=== PATIENT | female | born 1945 | race Hispanic/Latino ===

== ENCOUNTER 2017-03-27 09:49 | Outpatient (CLI) | payer MEDICARE, BC | END 2017-03-27 09:50 | disposition home or self-care (01) | LOC: BICMAMMO 09:49 | PROVIDERS: ATTEND Internal Medicine Rheumatology | DX: M81.0 Age-related osteoporosis without current pathological fracture (principal) | CPT/HCPCS: 77080 ==

== ENCOUNTER 2018-04-04 09:28 | Outpatient (CLI) | payer MEDICARE, BC ==
--- NOTE | 2018-04-04 12:19 | BD ---
BONE DENSITOMETRY USING DEXA: Date: 04/04/18 HISTORY: Postmenopausal screening for osteoporosis. FINDINGS: Lumbar Spine: BMD (g/cm2) L1 0.776 T-Score: -1.9 Z-Score: 0.0 L2 0.789 T-Score: -2.2 Z-Score: 0.0 L3 0.710 T-Score: -3.4 Z-Score: -1.1 L4 0.632 T-Score: -3.9 Z-Score: -1.6 L1-L4 0.721 T-Score: -3.0 Z-Score: -0.8 Femoral Neck: 0.700 T-Score: -1.3 Z-Score: 0.4 Total Femur: 0.885 T-Score: -0.5 Z-Score: 1.0 IMPRESSION: Osteoporosis. POS: [facility]
== END 2018-04-04 09:29 | disposition home or self-care (01) ==
LOC: BICMAMMO 09:28
PROVIDERS: ATTEND Physician Assistant
DX: M81.0 Age-related osteoporosis without current pathological fracture (principal)
CPT/HCPCS: 77080